=== PATIENT | female | born 1955 | race African-American/Black ===

== ENCOUNTER 2017-06-19 12:57 | Emergency (ER) | payer OTHER, MEDICARE ==
[~2017-06-19] VITALS: Ht 160 cm; Wt 109.8 kg
[2017-06-19] MEDS ORDERED: CRESTOR10 M1 PO (15:44)
[2017-06-19] MEDS ORDERED: BUMETANIDE1 M1 PO (15:45)
[2017-06-19] MEDS ORDERED: ASPIRIN EC81 M1 PO (15:45)
[2017-06-19] MEDS ORDERED: HUMALOG KW100 UNIT/1 SC (15:46)
[2017-06-19] MEDS ORDERED: LANTUS SOL100 UNIT/1 SC (15:46)
[2017-06-19] MEDS ORDERED: COL-RITE100 M1 PO (15:46)
[2017-06-19] MEDS ORDERED: CELLCEPT250 MG PO (15:47)
[2017-06-19] MEDS ORDERED: PREDNISONE2.5 M1 PO (15:47)
[2017-06-19] MEDS ORDERED: PANTOPRAZOLE SO40 M1 PO (15:47)
[2017-06-19] MEDS ORDERED: PROVENTIL HFA6.7 GM INH (15:48)
[2017-06-19] MEDS ORDERED: SYMBICORT 16010.2 GM INH (15:48)
[2017-06-19] MEDS ORDERED: PROGRAF1 M1 PO (15:49)
[2017-06-19] MEDS ORDERED: ZORTRESS0.5 MG PO (15:49)
[2017-06-19] MEDS ORDERED: COREG3.125 MG PO (15:52)
--- NOTE | 2017-06-19 16:09 | ED GENERAL ADULT ---
History of Present Illness General Chief Complaint: General Adult Stated Complaint: "SPIKED FEVER", BODY ACHES, SOB, COUGH, HEADACHE Source: patient, family Exam Limitations: no limitations Allergies Coded Allergies: Penicillins (Severe, ANAPHYLAXIS 06/19/17) ibuprofen (Severe, GI UPSET 06/19/17) latex (Severe, RASH 06/19/17) tree nut (ANAPHYLAXIS 06/19/17) Reconcile Medications Albuterol Sulfate (Proventil Hfa) 90 MCG HFA.AER.AD 1-2 PUF INH Q4-6H PRN RESP. (Reported) Aspirin (Ecotrin*) 81 MG TABLET.DR 1 TAB PO DAILY HEART/BLOOD (Reported) Budesonide/Formoterol Fumarate (Symbicort 160-4.5 Mcg Inhaler) 160 MCG-4.5 MCG/ ACTUATION HFA.AER.AD 2 PUF INH BID RESP. (Reported) Bumetanide 1 MG TABLET 1 TAB PO DAILY DIURETIC (Reported) Carvedilol (Coreg) 3.125 MG TABLET 1 TAB PO BID HEART/BP (Reported) Docusate Sodium (Col-Rite) 100 MG CAPSULE 1 CAP PO DAILY STOOL SOFTENER ( Reported) Doxycycline Hyclate 100 MG TABLET 1 TAB PO BID BRONCHITIS Everolimus (Zortress) 0.5 MG TABLET 6 TAB PO BID TRANSPLANT (Reported) Insulin Glargine,Hum.rec.anlog (Lantus Solostar) 100 UNIT/ML (3 ML) INSULN.PEN 22 UNITS SC QAM DM (Reported) Insulin Lispro (Humalog Kwikpen U-100) 100 UNIT/ML INSULN.PEN 8 UNITS SC TIDAC /HS DM (Reported) Mycophenolate Mofetil (Cellcept) 250 MG CAPSULE 2 CAP PO BID TRANSPLANT ( Reported) Oseltamivir Phosphate (Tamiflu) 30 MG CAPSULE 1 CAP PO BID FLU Oseltamivir Phosphate (Tamiflu) 30 MG CAPSULE 1 CAP PO BID FLU Pantoprazole Sodium 40 MG TABLET.DR 1 TAB PO DAILY GI (Reported) Prednisone 2.5 MG TABLET 1 TAB PO DAILY STEROID (Reported) Prednisone 10 MG TABLET 1 TAB PO ONCE DAILY BRONCHITIS Rosuvastatin Calcium (Crestor) 10 MG TABLET 1 TAB PO DAILY CHOLESTEROL ( Reported) Tacrolimus (Prograf) 1 MG CAPSULE 2 CAP PO BID TRANSPLANT (Reported) Tylenol With Codeine (Tylenol With Codeine #3 Tablet) 300 MG-30 MG TABLET 1 TAB PO Q4-6 PRN PRN COUGH/PAIN Triage Note: 62 Y/O FEMALE C/O COUGH AND FEVER SINCE OVERNIGHT, 0400. STATES COUGH IS PRODUCTIVE OF YELLOW PHLEGM REPORTS T-MAX 101 THIS MORNING; TOOK 2 TABS TYLENOL WITHIN THE HOUR - NOW AFEBRILE. PT ALSO REPORTS GENERAL ACHES AND PAIN IN RIBS FROM COUGHING. KIDNEY TRANSPLANT RECIPIENT R ARM RESTRICTED DUE TO SHUNT. PINK BAND PLACED Triage Nurses Notes Reviewed? yes Onset: Abrupt Duration: day(s): (1), better, continues in ED Timing: single episode today Injury Environment: home Severity: mild, moderate Severity Numbers: 7 No Modifying Factors: none Associated Symptoms: cough LMP (ages 10-50): unknown : No Patient currently breastfeeds: No HPI: 62-year-old female past medical history of hypertension, hyperlipidemia, type 2 diabetes, kidney transplant many years ago on immunosuppression presents for evaluation of fever, body aches and cough. Patient states that symptoms first started last night when she spiked a fever of 101. She reports associated body aches and cough. The cough is productive of yellow sputum and is worse at night causing difficulty sleeping. She reports muscle aches in her back legs and arms. She reports wheezing and shortness of breath. No chest pain or hemoptysis. She does not smoke. No nausea vomiting diarrhea abdominal pain back pain and urinary symptoms. No rashes neck pain or headaches. (Parker Child) Vital Signs & Intake/Output Vital Signs & Intake/Output Vital Signs Date Time Temp Pulse Resp B/P B/P Pulse O2 O2 Flow FiO2 Mean Ox Delivery Rate 06/19 1820 98.3 83 24 154/70 97 Room Air 06/19 1654 97.5 86 20 172/82 9 Room Air 06/19 1332 97.0 84 18 140/63 97 Room Air (Lionel Ca DO) Past History Travel History Traveled to [place] past 21 day No Medical History Any Pertinent Medical History? 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 No (Parker Child) Review of Systems Review of Systems Constitutional: Reports: chills, fever, malaise. EENTM: Reports: nasal congestion. Respiratory: Reports: see HPI, cough, short of breath, sputum production, wheezing. Cardiovascular: Reports: no symptoms. GI: Reports: no symptoms. Genitourinary: Reports: no symptoms. Musculoskeletal: Reports: see HPI, back pain, muscle pain, muscle stiffness. Skin: Reports: no symptoms. Neurological/Psychological: Reports: no symptoms. Hematologic/Endocrine: Reports: no symptoms. Immunologic/Allergic: Reports: no symptoms. All Other Systems: Reviewed and Negative (Parker Child) Physical Exam Physical Exam General Appearance: well developed/nourished, no apparent distress, alert, awake , obese Head: atraumatic, normal appearance Eyes: Bilateral: normal appearance, PERRL, EOMI. Ears, Nose, Throat: normal pharynx, hearing grossly normal, nasal congestion, moist mucus membranes Neck: normal inspection, supple, full range of motion Respiratory: no respiratory distress, rhonchi, wheezing, chest wall is tender to palpation over the sternum Cardiovascular: regular rate/rhythm, normal peripheral pulses Peripheral Pulses: 2+ radial (R), 2+ radial (L) Gastrointestinal: normal bowel sounds, soft, non-tender, no organomegaly Back: normal inspection, normal range of motion, no CVA tenderness Extremities: normal inspection, normal range of motion, no edema Neurologic/Psych: no motor/sensory deficits, awake, alert, oriented x 3, normal gait Skin: intact, normal color, warm/dry Lymphatic: no anterior cervical vincent Core Measures ACS in differential dx? No CVA/TIA Diagnosis: No Sepsis Present: No Sepsis Focused Exam Completed? No (Parker Child) Progress Differential Diagnoses I considered the following diagnoses in my evaluation of the patient: [Pneumonia , influenza, UTI, acute bronchitis, sepsis, electrolyte abnormality, pulmonary embolism, acute coronary syndrome] Diagnostic Imaging: Viewed by Me: Radiology Read. Discussed w/RAD: Radiology Read. CXR Impression: PATIENT: SAILAJA ROSE PRESENT AGE: 62 PATIENT ACCOUNT NO: [id number] : 56 LOCATION: [facility] ORDERING PHYSICIAN: Parekr MATSON SERVICE DATE: 06/19/17 EXAM TYPE: RAD - XRY-CHEST XRAY, TWO VIEWS EXAMINATION: XR CHEST CLINICAL INFORMATION: Cough and fever COMPARISON : None TECHNIQUE: 2 views of the chest were obtained. FINDINGS: No significant abnormality is noted involving the heart, lungs, mediastinum, bony thorax or soft tissues. IMPRESSION: Unremarkable examination. DICTATED BY: Noah Wiseman MD DATE/TIME DICTATED:06/19/171606 FUND ACCOUNTANT:ALYSHA DATE/TIME TRANSCRIBED:06/19/171606 CONFIDENTIAL, DO NOT COPY WITHOUT APPROPRIATE AUTHORIZATION. Initial ED EKG: normal sinus rhythm, no ST T wave changes (Parker Child) Plan of Care: Orders Procedure Date/time Status VIRAL CULTURE 06/19 145 Active RAPID VIRAL INFLUENZA A 06/19 143 Complete URINALYSIS 06/19 143 Complete COMPREHENSIVE METABOLIC PANEL 06/19 143 Complete CBC WITHOUT DIFFERENTIAL 06/19 1433 Complete EKG 06/19 1300 Active Current Medications Sig/Teresita Start time Last Medication Dose Stop Time Status Admin Oseltamivir Phosphate 30 MG ONCE ONE 06/19 1929 UNVr (Tamiflu) 06/19 1930 Laboratory Tests 06/19/17 1737: Anion Gap 14, Estimated GFR 24 L, BUN/Creatinine Ratio 13.3, Glucose 129 H, Calcium 9.0, Total Bilirubin 0.4, AST 24, ALT 33, Alkaline Phosphatase 77, Total Protein 6.9, Albumin 4.1, Globulin 2.8, Albumin/Globulin Ratio 1.5, CBC w Diff NO MAN DIFF REQ, RBC 4.08 L, MCV 80.1 L, MCH 25.2 L, RDW 16.3 H, MPV 8.5, Gran % 81.7 H, Lymphocytes % 6.9 L, Monocytes % 10.2 H, Eosinophils % 0.8, Basophils % 0.4, Absolute Granulocytes 4.1, Absolute Lymphocytes 0.3 L, Absolute Monocytes 0.5, Absolute Eosinophils 0, Absolute Basophils 0, PUBS MCHC 31.4 L 06/19/17 1615: Urine Color STRAW, Urine Clarity CLEAR, Urine pH 6.0, Ur Specific [place] <= 1.005, Urine Protein NEG, Urine Ketones NEG, Urine Nitrite NEG, Urine Bilirubin NEG, Urine Urobilinogen 0.2, Ur Leukocyte Esterase NEG, Ur Microscopic SEDIMENT EXAMINED, Urine RBC 1-3, Urine WBC RARE, Ur Epithelial Cells RARE, Urine Bacteria FEW H, Urine Mucus RARE, Urine Hemoglobin MOD H, Urine Glucose NEG 06/19/17 1452: Virus Culture Pending Microbiology 06/19 1452 NASOPHARYN: Influenza Virus A & B Rapid Smear - COMP INFLUENZA TYPE A Patient seen and evaluated. She currently is afebrile nontoxic-appearing. She has diffuse wheezing and rhonchi located bilaterally. She be given a DuoNeb. We'll check chest x-ray basic blood work influenza testing. Also touch base with patient's transplant doctors in [place]. Patient is positive for the flu. Patient's transplant doctors at [facility] in [place] state that we should treat her like a normal patient since the transplant was many years ago. Bloodwork overall does not show any acute changes. Patient states her normal creatinine is in the 2 range. He does not have an elevated white blood cell count EKG is stable. There is no pneumonia or hypoxia. Patient will be treated with Tamiflu. Additionally due to her wheezing and rhonchi she'll be covered with doxycycline for bronchitis/ early pneumonia. Patient was ambulated in the emergency department and did not desaturate. Patient takes 2.5 mg of prednisone daily as part of her immunosuppressants. She'll be increased to 10 mg daily for the next 5 days. Advised her to rest and drink plenty of fluids Tylenol for fever and body aches. Tylenol with Codeine for severe pain/cough. Pro-air inhaler 2 puffs every 4-6 hours as needed. Steam saline nasal spray for congestion. Make a follow-up with her primary care doctor as soon as possible within the next week. Discussed return precautions in detail. Discussed transmission of the flu in detail. Patient is nontoxic-appearing and afebrile and agrees the plan. (Devan MATSON,Parker) (Lionel Ca DO) Departure Departure Disposition: HOME OR SELF CARE Condition: Stable Clinical Impression Primary Impression: Influenza A Secondary Impressions: Acute bronchitis Qualifiers: Bronchitis organism: unspecified organism Qualified Code: J20.9 - Acute bronchitis, unspecified Referrals: Patient Has No Primary Care Dr (PCP/Family) Departure Forms: Customer Survey General Discharge Information Prescriptions: Current Visit Scripts Oseltamivir Phosphate (Tamiflu) 1 CAP PO BID #10 CAP Doxycycline Hyclate 1 TAB PO BID #20 TAB Prednisone 1 TAB PO ONCE DAILY #5 TAB Tylenol With Codeine (Tylenol With Codeine #3 Tablet) 1 TAB PO Q4-6 PRN PRN COUGH/PAIN #10 TAB Oseltamivir Phosphate (Tamiflu) 1 CAP PO BID #10 CAP (Parker Child) PA/METAL PATTERNMAKER APPRENTICE Co-Sign Statement Statement: ED Attending supervision documentation- [x] I saw and evaluated the patient. I have also reviewed all the pertinent lab results and diagnostic results. I agree with the findings and the plan of care as documented in the PA's/METAL PATTERNMAKER APPRENTICE's documentation. [] I have reviewed the ED Record and agree with the PA's/METAL PATTERNMAKER APPRENTICE's documentation. [] Additions or exceptions (if any) to the PAs/METAL PATTERNMAKER APPRENTICE's note and plan are summarized below: [] (Lionel Ca DO) Critical Care Note Critical Care Note Critical Care Time: non-applicable (Parker Child)
--- NOTE | 2017-06-19 16:11 | RADIOLOGY REPORT ---
EXAMINATION: XR CHEST CLINICAL INFORMATION: Cough and fever COMPARISON: None TECHNIQUE: 2 views of the chest were obtained. FINDINGS: No significant abnormality is noted involving the heart, lungs, mediastinum, bony thorax or soft tissues. IMPRESSION: Unremarkable examination.
[2017-06-19 17:52] LABS: ABSOLUTE BASOPHIL COUNT 0 /CUMM (0.0-0.2); ABSOLUTE EOSINOPHIL COUNT 0 /CUMM (0.0-0.7); ABSOLUTE GRANULOCYTE CT 4.1 /CUMM (1.4-6.5); ABSOLUTE LYMPH COUNT 0.3 /CUMM (1.2-3.4); ABSOLUTE MONOCYTE COUNT 0.5 /CUMM (0.10-0.60); BASOPHIL % 0.4 % (0.0-2.0); EOSINOPHIL % 0.8 % (0-5); GRANULOCYTE % 81.7 % (42.2-75.2); HEMATOCRIT 32.7 % (37-47); MEAN CORPUSCULAR HGB 25.2 PG (27.0-31.0); MEAN CORPUSCULAR HGB CONC 31.4 G/DL (33.0-37.0); MEAN CORPUSCULAR VOLUME 80.1 FL (81.0-99.0); MEAN PLATELET VOLUME 8.5 FL (7.4-10.4); PLATELET COUNT 174 /CUMM (130-400); RBC DISTRIBUTION WIDTH 16.3 % (11.5-14.5); RED BLOOD CELL CT 4.08 /CUMM (4.20-5.40)
[2017-06-19 18:20] VITALS: BP 154/70
[2017-06-19] MEDS ORDERED: DOXYCYCLINE HY100 M4 PO (18:50)
[2017-06-19] MEDS ORDERED: PREDNISONE10 M2 PO (18:50)
[2017-06-19] MEDS ORDERED: TAMIFLU30 M1 PO ×2 (18:50→19:20)
[2017-06-19] MEDS ORDERED: TYLENOL WITH C1 EACH PO (18:54)
== END 2017-06-19 18:59 ==
LOC: ERH 12:57
PROVIDERS: Physician Assistant Medical
DX: J10.1 Influenza due to other identified influenza virus with other respiratory manifestations (principal); J20.9 Acute bronchitis, unspecified; Z87.891 Personal history of nicotine dependence; R06.02 Shortness of breath
CPT/HCPCS: 1263; 71046; 81001; 87804; 87804-59; 93005; 93010